=== PATIENT | male | born 1955 | race Caucasian/White ===

== ENCOUNTER 2017-05-10 02:47 | Outpatient (CLI) ==
[2017-05-10 03:09] VITALS: BMI 33.9
== END 2017-05-10 02:48 | disposition home or self-care (01) ==
LOC: AMBL 02:47
PROVIDERS: ATTEND Internal Medicine Geriatric Medicine
DX: I46.9 Cardiac arrest, cause unspecified (principal); R04.0 Epistaxis; W19.XXXA Unspecified fall, initial encounter

== ENCOUNTER 2017-05-10 02:49 | Emergency (ER) ==
[2017-05-10] MEDS ORDERED: EPINEPHRINE 1:10,000 SYRINGE IV STA ×7 (02:57→03:19)
[2017-05-10] MEDS ORDERED: SODIUM BICARBONATE 7.5% IVP STA ×3 (02:57→03:04)
[2017-05-10 03:09] VITALS: TEMP 94; BMI 33.9
[2017-05-10 03:32] LABS: BASOPHILS # (AUTO) 0.1 K/uL (0-0.2); BASOPHILS % (AUTO) 0.9 % (0.0-3.0); EOSINOPHILS # (AUTO) 0.2 K/ul (0.0-0.7); EOSINOPHILS % (AUTO) 1.5 % (0.0-7.0); HEMATOCRIT 42.6 % (42.0-52.0); HEMOGLOBIN 14.1 g/dl (14.0-18.0); IMMATURE GRANULOCYTE % (AUTO) 5.3 % (0.0-5.0); LYMPHOCYTES # (AUTO) 4.1 K/uL (0.60-3.4); LYMPHOCYTES % (AUTO) 36.8 (10.0-50.0); MEAN CORPUSCULAR HEMOGLOBIN 32.2 pg (27.0-31.0); MEAN CORPUSCULAR HGB CONC 33.1 (31.8-35.4); MEAN CORPUSCULAR VOLUME 97.3 fl (80.0-94.0); MONOCYTES # (AUTO) 0.5 K/uL (0.4-2.0); MONOCYTES % (AUTO) 4.2 (0-10); NEUTROPHILS # (AUTO) 5.7 K/ul (2.0-6.9); NEUTROPHILS % (AUTO) 51.3; PLATELET COUNT 152 10^3/uL (140-440); RED BLOOD COUNT 4.38 10^6/ul (4.70-6.10); WHITE BLOOD COUNT 11.03 K/ul (4.2-10.2)
--- NOTE | 2017-05-10 03:32 | ED.PDOC ---
General ED Provider: Dr. ELLEN OLIVAS Chief Complaint: Cardiac Arrest Stated Complaint: Patient was having vomitings today, he took shower, maribel a thud, when she saw him, he was on the floor, face down, bleeding from nose, UNRESPONSIVE, EMT called. Time Seen by Physician: 03:29 Mode of Arrival: Ambulance Information Source: EMT Nursing and Triage Documentation Reviewed and Agree: Yes Cardiac Resuscitation - Cardiac Resuscitation Onset/Duration: Minutes Witnessed Arrest: No Down-time Before BLS Initiated: minutes Airway Prehospital Findings: Reports: Obstructed, Gag reflex present Breathing Prehospital Findings: Reports: Apnea Circulation/Rhythm Prehospital Findings: Reports: Asystole Disability/Neurological Prehospital Findings: Reports: Unresponsive Airway Prehospital Intervention: Reports: Oral airway Breathing Prehospital Intervention: Reports: Bag-valve mask, Intubation Circulation/Rhythm Prehospital Intervention: Reports: Chest compressions, Defibrillated, Epinephrine Airway Prehospital Response: positive Breathing Prehospital Response: Present: ETT in airway, Equal breath sounds Circulation/Rhythm Prehospital Response: Present: Asystole Airway ED Findings: Patent Breathing ED Findings: Present: Apnea Circulation/Rhythm ED Findings: Present: Asystole Disability/Neurological ED Findings: Present: Unresponsive Breathing ED Intervention: Oxygen, Bag-valve mask Circulation/Rhythm ED Intervention: Chest compressions, Epinephrine Breathing ED Response: Equal breath sounds, Confirmed by auscultation Circulation/Rhythm ED Response: Present: Asystole Right Pupil: Fixed Left Pupil: Fixed EMS/Code Sheet Reviewed: Yes Patient is a DNR: No Patient Has a Living Will: No Resuscitation Successful: No Terminated At: 3;22 Differential Diagnoses: Asystole, Respiratory Failure, Sudden Past Medical History - Past Medical History Previously Healthy: Yes Endocrine: Reports: None Cardiovascular: Reports: None Respiratory: Reports: None Hematological: Reports: None Gastrointestinal: Reports: None Genitourinary: Reports: None Neuro/Psych: Reports: None Musculoskeletal: Reports: None Cancer: Reports: None - Surgical History General Surgical History: Reports: None - Family History Family History: Reports: None - Social History Smoking Status: Unknown if ever smoked Hx Substance Use: No Alcohol Screening: None - Immunizations Tetanus Shot up to Date: No (unknown) Critical Care Note - Critical Care Note Total Time (mins): 30 Course - Course Hematology/Chemistry: 05/10/17 03:15 05/10/17 03:15 Orders, Labs, Meds: Lab Review 05/10/17 03:15 WBC 11.03 H RBC 4.38 L Hgb 14.1 Hct 42.6 MCV 97.3 H MCH 32.2 H MCHC 33.1 RDW Coeff of Bernabe 12.8 Plt Count 152 Immature Gran % (Auto) 5.3 H Neut % (Auto) 51.3 Lymph % (Auto) 36.8 [place] % (Auto) 4.2 Eos % (Auto) 1.5 Baso % (Auto) 0.9 Immature Gran # (Auto) 0.6 Neut # 5.7 Lymph # 4.1 H [place] # 0.5 Eos # 0.2 Baso # 0.1 Sodium 147 H Potassium 2.7 L* Chloride 102 Carbon Dioxide 21 L Anion Gap 26.7 BUN 11 Creatinine 1.49 H Estimated GFR (MDRD) 48.00 BUN/Creatinine Ratio 7.38 Glucose 229 H Calcium 8.6 Total Bilirubin 0.31 AST 20 ALT 17 Alkaline Phosphatase 102 Total Creatine Kinase 98 Troponin I 0.0890 Total Protein 6.0 Albumin 3.2 L Globulin 2.8 Albumin/Globulin Ratio 1.14 Orders Category Date Time Status CBC W/ AUTO DIFF Stat LAB 05/10/17 03:15 Completed COMPREHENSIVE METABOLIC PANEL Stat LAB 05/10/17 03:15 Completed CREATINE KINASE Stat LAB 05/10/17 03:15 Completed TROPONIN I Stat LAB 05/10/17 03:15 Completed Epinephrine [Epinephrine 1:10,000 Syringe] MEDS 05/10/17 02:57 Discontinued 1 mg IV ONCE STA Epinephrine [Epinephrine 1:10,000 Syringe] MEDS 05/10/17 03:00 Discontinued 1 mg IV ONCE STA Epinephrine [Epinephrine 1:10,000 Syringe] MEDS 05/10/17 03:04 Discontinued 1 mg IV ONCE STA Epinephrine [Epinephrine 1:10,000 Syringe] MEDS 05/10/17 03:07 Discontinued 1 mg IV ONCE STA Epinephrine [Epinephrine 1:10,000 Syringe] MEDS 05/10/17 03:12 Discontinued 1 mg IV ONCE STA Epinephrine [Epinephrine 1:10,000 Syringe] MEDS 05/10/17 03:15 Discontinued 1 mg IV ONCE STA Epinephrine [Epinephrine 1:10,000 Syringe] MEDS 05/10/17 03:19 Discontinued 1 mg IV ONCE STA Sodium Bicarb 7.5% [Sodium Bicarbonate 7.5%] MEDS 05/10/17 02:57 Discontinued 44.6 meq IVP ONCE STA Sodium Bicarb 7.5% [Sodium Bicarbonate 7.5%] MEDS 05/10/17 02:57 Discontinued 44.6 meq IVP ONCE STA Sodium Bicarb 7.5% [Sodium Bicarbonate 7.5%] MEDS 05/10/17 03:04 Discontinued 44.6 meq IVP ONCE STA Sodium Chloride 0.9% [Sodium Chloride] 500 ml MEDS 05/10/17 04:25 Active IV BOLUS Medications Generic Name Dose Route Start Last Admin Trade Name Freq PRN Reason Stop Dose Admin Sodium Chloride 500 mls @ 500 mls/hr 05/10/17 04:25 Sodium Chloride IV 05/10/17 05:24 BOLUS STA Discontinued Medications Generic Name Dose Route Start Last Admin Trade Name Freq PRN Reason Stop Dose Admin Epinephrine HCl 1 mg 05/10/17 02:57 Epinephrine 1:10,000 Syringe IV 05/10/17 02:58 ONCE STA Epinephrine HCl 1 mg 05/10/17 03:00 Epinephrine 1:10,000 Syringe IV 05/10/17 03:01 ONCE STA Epinephrine HCl 1 mg 05/10/17 03:07 Epinephrine 1:10,000 Syringe IV 05/10/17 03:08 ONCE STA Epinephrine HCl 1 mg 05/10/17 03:12 Epinephrine 1:10,000 Syringe IV 05/10/17 03:13 ONCE STA Epinephrine HCl 1 mg 05/10/17 03:15 Epinephrine 1:10,000 Syringe IV 05/10/17 03:16 ONCE STA Epinephrine HCl 1 mg 05/10/17 03:19 Epinephrine 1:10,000 Syringe IV 05/10/17 03:20 ONCE STA Epinephrine HCl 1 mg 05/10/17 03:04 Epinephrine 1:10,000 Syringe IV 05/10/17 03:05 ONCE STA Sodium Bicarbonate 44.6 meq 05/10/17 03:04 Sodium Bicarbonate 7.5% IVP 05/10/17 03:05 ONCE STA Sodium Bicarbonate 44.6 meq 05/10/17 02:57 Sodium Bicarbonate 7.5% IVP 05/10/17 02:58 ONCE STA Sodium Bicarbonate 44.6 meq 05/10/17 02:57 Sodium Bicarbonate 7.5% IVP 05/10/17 02:58 ONCE STA Vital Signs: Temp Pulse Resp BP Pulse Ox 05/10/17 02:52 94 F L 0 L 0 L 0/0 L 0 L Departure - Departure Time of Disposition: 04:26 Disposition: Discharge Problem: Cardiac arrest Condition: Pt referred to PMD for follow-up: No Allergies/Adverse Reactions: Allergies No Known Allergies Allergy (Unverified 05/10/17 03:07) Home Medications: Ambulatory Orders 1 [Unobtainable] 05/10/17 Disposition Discussed With: Family
[2017-05-10 03:42] LABS: ALBUMIN 3.2 g/dL (3.4-5.0); ALBUMIN/GLOBULIN RATIO 1.14; ANION GAP 26.7; BILIRUBIN,TOTAL 0.31 mg/dL (0.00-1.20); BUN/CREATININE RATIO 7.38; CALCIUM 8.6 mg/dL (8.2-10.2); CREATININE 1.49 mg/dL (0.60-1.10); TROPONIN I 0.089 ng/ml (0.0000-0.4000)
[2017-05-10 03:43] LABS: POTASSIUM 2.7 mmol/L (3.5-5.1)
[2017-05-10] MEDS ORDERED: SODIUM CHLORIDE 500 ML IV STA (04:25)
[2017-05-10 04:55] VITALS: BP 00/00
== END 2017-05-10 05:30 | disposition expired ==
LOC: ED 02:49
DX: I46.9 Cardiac arrest, cause unspecified (principal)
CPT/HCPCS: 36415; 80053; 82550; 84484; 85025; 96361; 96374; 96375; 96376; 99291